=== PATIENT | female | born 1985 | race Caucasian/White ===

== ENCOUNTER 2016-06-24 10:44 | Emergency (ER) | payer OTHER ==
[2016-06-24 14:14] LABS: BILIRUBIN NEGATIVE (NEGATIVE); BLOOD 1+ Ery/uL (NEGATIVE); CLARITY CLEAR (CLEAR); COLOR YELLOW (YELLOW); GLUCOSE (U) NORMAL (NORMAL); KETONE (U) NEGATIVE (NEGATIVE); LEUKOCYTES NEGATIVE Leu/uL (NEGATIVE); NITRITE NEGATIVE (NEGATIVE); PROTEIN NEGATIVE (NEGATIVE); UROBILINOGEN 0.2 mg/dL (0.2-1.0); pH 7.5 (5.0-9.0)
[2016-06-24 14:24] LABS: BACTERIA TRACE; URINARY RBC RARE
[2016-06-24 14:25] LABS: SQUAMOUS EPITHELIAL CELLS RARE
== END 2016-06-24 16:18 | disposition home or self-care (01) ==
LOC: FER 10:44
PROVIDERS: Emergency Medicine
DX: N20.0 Calculus of kidney (principal); K59.00 Constipation, unspecified; F32.9 Major depressive disorder, single episode, unspecified; Z79.899 Other long term (current) drug therapy; Z88.0 Allergy status to penicillin; Z88.8 Allergy status to other drugs, medicaments and biological substances; Z91.040 Latex allergy status; Z87.42 Personal history of other diseases of the female genital tract; Z98.890 Other specified postprocedural states
CPT/HCPCS: 81001; J1885

== ENCOUNTER 2016-06-29 12:38 | Emergency (ER) | payer OTHER ==
[2016-06-29 14:29] LABS: BASOPHIL 0.3 % (0-2); EOSINOPHIL 0.3 % (0-5); HCT 34.3 % (37.0-47.0); HGB 10.7 g/dl (12.5-16.0); LYMPHOCYTE 32.8 % (15-48); MCH 24.4 pg (25.0-31.0); MCHC 31.2 g/dL (32.0-36.0); MCV 78.3 fL (78.0-100.0); MONOCYTE 9.7 % (0-12); MPV 9.3 fL (6.0-9.5); NEUTROPHIL 56.9 % (41-80); PLT 283 K/uL (150-400); RBC 4.38 M/uL (4.20-5.40); RDW 14.8 % (11.5-14.0)
[2016-06-29 14:42] LABS: WBC 3.4 K/uL (4.0-10.5)
[2016-06-29 14:46] LABS: ALBUMIN 5.1 g/dL (3.5-5.0); BILIRUBIN - TOTAL 0.7 mg/dL (0.1-1.0); CREATININE 0.6 mg/dL (0.5-1.0); POTASSIUM 3.8 mmol/L (3.5-5.1); TOTAL PROTEIN 8.1 g/dL (6.4-8.3)
[2016-06-29 15:07] LABS: BILIRUBIN NEGATIVE (NEGATIVE); BLOOD 2+ Ery/uL (NEGATIVE); CLARITY HAZY (CLEAR); COLOR YELLOW (YELLOW); GLUCOSE (U) NORMAL (NORMAL); KETONE (U) NEGATIVE (NEGATIVE); LEUKOCYTES NEGATIVE Leu/uL (NEGATIVE); NITRITE NEGATIVE (NEGATIVE); PROTEIN NEGATIVE (NEGATIVE); SPECIFIC GRAVITY <=1.005 (1.001-1.030); UROBILINOGEN 0.2 mg/dL (0.2-1.0); pH 6.5 (5.0-9.0)
[2016-06-29 15:48] LABS: BACTERIA 1+
== END 2016-06-29 16:05 | disposition home or self-care (01) ==
LOC: FER 12:38
PROVIDERS: Emergency Medicine
DX: K59.00 Constipation, unspecified (principal); M54.5 Low back pain; Z84.1 Family history of disorders of kidney and ureter
CPT/HCPCS: 36415; 80053; 81001; 83690; 85025; 96372; J2175; J2212; J2405; Q9967

== ENCOUNTER 2016-12-29 10:40 | Emergency (ER) | payer OTHER | END 2016-12-29 14:59 | disposition home or self-care (01) | LOC: FER 10:40 | DX: S13.4XXA Sprain of ligaments of cervical spine, initial encounter (principal); S23.3XXA Sprain of ligaments of thoracic spine, initial encounter; M54.32 Sciatica, left side; M25.512 Pain in left shoulder; E03.9 Hypothyroidism, unspecified; Z79.899 Other long term (current) drug therapy; W01.0XXA Fall on same level from slipping, tripping and stumbling without subsequent striking against object, initial encounter; Y92.009 Unspecified place in unspecified non-institutional (private) residence as the place of occurrence of the external cause | CPT/HCPCS: 72050; 72072; 72110; 73010; 73030; J1100; J1885 ==

== ENCOUNTER 2020-08-14 21:14 | Emergency (ER) | payer OTHER ==
[2020-08-15] MEDS ORDERED: PREDNISONE 20MG20 MG PO (00:14)
[2020-08-15] MEDS ORDERED: NORCO 5-325 TA1 EACH PO (00:14)
[2020-08-15] MEDS ORDERED: MAGICMW SSW (00:14)
== END 2020-08-15 00:30 | disposition home or self-care (01) ==
LOC: FER 21:14
DX: T78.3XXA Angioneurotic edema, initial encounter (principal); T40.2X5A Adverse effect of other opioids, initial encounter; Z88.5 Allergy status to narcotic agent; Z88.0 Allergy status to penicillin; Z91.040 Latex allergy status
CPT/HCPCS: J1170; J1200; J1885; J2405; J2930; J7030